=== PATIENT | female | born 1935 | race Caucasian/White ===

== ENCOUNTER 2019-06-12 11:22 | Inpatient (IN) | payer MEDICARE, MEDICAID ==
[~2019-06-12] VITALS: Ht 162.6 cm; Wt 73.5 kg
--- NOTE | 2019-06-12 11:24 | NUR ---
[id number] FOR NAUSEA AND VOMITING, R RIB AREA PAIN,NO BM X 2-3 WEEKS, TO ER BED 10, HOOKED TO MONITOR, CHANGED TO HOSPITAL GOWN, PROVIDED W WARM BLANKET, AWAITING MD POLO.
--- NOTE | 2019-06-12 11:49 | NUR ---
DR CHUNG AT BEDSIDE
[2019-06-12] MEDS ORDERED: IV NS 0.9% 500 ML BAG IV ONE (12:00)
[2019-06-12 12:21] LABS: BASOPHILS % (AUTO) 0.4 % (0.0-2.0); HEMATOCRIT 44 % (33-45); HEMOGLOBIN 14.4 g/dL (11.5-14.8); LYMPHOCYTES # (AUTO) 1.5 /CMM (0.8-4.8); LYMPHOCYTES % (AUTO) 13.3 % (20.0-44.0); MEAN CORPUSCULAR HGB CONC 33 g/dl (31.0-36.0); MEAN CORPUSCULAR VOLUME 93 fL (82-100); MONOCYTES # (AUTO) 0.4 /CMM (0.1-1.30); MONOCYTES % (AUTO) 4.1 % (2.0-12.0); NEUTROPHILS % (AUTO) 81.2 % (43.0-81.0); PLATELET COUNT (AUTO) 298 /CMM (150-450); RED BLOOD CELL COUNT(AUTO) 4.65 MIL/uL (4.0-5.2)
[2019-06-12 12:29] LABS: CALCIUM, SERUM 12.2 mg/dL (8.5-10.1); CARBON DIOXIDE 26 mmol/L (21-32); CHLORIDE 89 mmol/L (98-107); CREATININE 1.1 mg/dL (0.6-1.3); GLUCOSE 129 mg/dL (74-106); POTASSIUM 3.9 mmol/L (3.5-5.1); SODIUM SERUM 127 mmol/L (136-145); UREA NITROGEN, BLOOD 53 mg/dL (7-18)
[2019-06-12 12:44] LABS: ALANINE AMINOTRANSFERASE 18 U/L (12-78); ALBUMIN 2.9 g/dL (3.4-5.0); ALKALINE PHOSPHATASE 149 U/L (46-116); ASPARTATE AMINOTRANSFERASE 48 U/L (15-37); BILIRUBIN,DIRECT 2.2 mg/dL (0.0-0.2); LIPASE 471 U/L (73-393); TOTAL PROTEIN, SERUM 8.2 g/dL (6.4-8.2)
[2019-06-12] MEDS ORDERED: CT SWABBABLE VALVE TRANS SET 1 EA INFUS.SET MC ONE ×2 (12:50→16:02)
[2019-06-12] MEDS ORDERED: IOHEXOL-300 100 ML VIAL IV ONE ×2 (12:50→16:02)
[2019-06-12] MEDS ORDERED: IV NS 0.9% 250 ML IV ONE ×2 (12:50→16:02)
--- NOTE | 2019-06-12 12:50 | NUR ---
WHEELED OUT VIA [facility] FOR CT SCAN
--- NOTE | 2019-06-12 13:22 | NUR ---
US TECH AT BEDSIDE
--- NOTE | 2019-06-12 13:47 | NUR ---
PAGED [facility].
[2019-06-12] MEDS ORDERED: DILT-32 PO (13:50)
--- NOTE | 2019-06-12 14:58 | NUR ---
URINE SAMPLE COLLECTED VIA STRAIGHT CATH. SENT SAMPLE TO LAB
[2019-06-12] MEDS ORDERED: MAG HYDROX/AL HYDROX/SIMETH 30 ML UDC PO PRN (15:00)
[2019-06-12] MEDS ORDERED: ACETAMINOPHEN 325 MG TABLET PO PRN (15:00)
[2019-06-12] MEDS ORDERED: HYDROCODONE/APAP 5/325MG 1 EACH TABLET PO PRN (15:00)
[2019-06-12] MEDS ORDERED: MAGNESIUM HYDROXIDE 30 ML UDC PO PRN (15:00)
[2019-06-12] MEDS ORDERED: Z GUARD REMEDY 2 OZ OINT TP PRN (15:00)
[2019-06-12] MEDS ORDERED: ONDANSETRON HCL/PF 4 MG/2 ML VIAL IVP PRN (15:00)
[2019-06-12] MEDS ORDERED: ZOLPIDEM TARTRATE 5 MG TABLET PO PRN (15:00)
[2019-06-12] MEDS ORDERED: IV NS 0.9% 1,000 ML BAG IV ONE (15:30)
--- NOTE | 2019-06-12 15:42 | NUR ---
CALLED NURSING SUP.
[2019-06-12 15:44] LABS: APPEARANCE,URINE Cloudy (CLEAR); BILIRUBIN,URINE MODERATE (NEGATIVE); BLOOD, URINE Negative Ery/uL (NEGATIVE); KETONES,URINE Trace (NEGATIVE); LEUKOCYTE ESTERASE ,URINE Small (NEGATIVE); NITRITE, URINE Positive (NEGATIVE); PROTEIN,URINE Negative (NEGATIVE); UGLUCOSE Negative (NEGATIVE); UROBILINOGEN,URINE >=8.0 EU/dL (0.2)
[2019-06-12 15:46] LABS: COLOR,URINE DARK YELLOW (YELLOW)
--- NOTE | 2019-06-12 16:15 | NUR ---
WHEELED OUT VIA [facility] FOR CT CHEST WITH CONTRAST
--- NOTE | 2019-06-12 16:28 | NUR ---
PT GOING TO 307-2 MED SURG.
[2019-06-12 16:33] LABS: BACTERIA,URINE Many /HPF (None Seen); RBC,URINE 0-2 /HPF (0-2); SQUAMOUS EPITHELIAL CELL,UR Few /HPF (None Seen); URINE AMORPHOUS URATE Many /HPF (None Seen)
--- NOTE | 2019-06-12 16:33 | NUR ---
REPORT GIVEN TO ALICE OF MS UNIT
[2019-06-12 16:34] VITALS: BP 128/71
[2019-06-12] MEDS ORDERED: ENOXAPARIN SODIUM 60 MG/0.6 ML DISP.SYRIN SQ SCH (17:00)
--- NOTE | 2019-06-12 17:00 | NUR ---
RN MS NOTES RECEIVED PT FROM E.R. STAFF VIA TOYA, PT IS AWAKE, ALERT, [place] SPEAKING, ACCOMPANIED BY FAMILY, ASSISTED TO BED, MADE COMFORTABLE, CALL LIGHT PLACED WITHIN REACH, PT DENIES PAIN, NOT IN DISTRESS, NO NAUSEA OR VOMITING, KEPT WARM AND COMFORTABLE IN BED.
[2019-06-12] MEDS ORDERED: PAMIDRONATE 90 MG in IV NS 0.9% 500 ML IV ONE (17:30)
[2019-06-12] MEDS: ACETYLCYSTEINE 10% 3,000 MG/30 ML VIAL PO SCH (17:30)
[2019-06-12] MEDS ORDERED: HEPARIN INFUSION/D5W 500 ML IV ONE (17:30)
[2019-06-12] MEDS: IV D5/0.45 NACL 1,000 ML IV PRN (18:38)
--- NOTE | 2019-06-12 19:20 | NUR ---
RN MS NOTES PT IN BED, AWAKE, FAMILY AT BEDSIDE, DR. JUAN ORDERED TO START HEPARIN DRIP AND TO D/C LOVENOX, PTT ORDERED STAT, AWAITING RESULT, PT AND FAMILY INFORMED OF PLAN OF CARE, KEPT PT WARM AND COMFORTABLE, IV FLUIDS INFUSING WELL, CALL LIGHT WITHIN REACH.
--- NOTE | 2019-06-12 19:55 | NUR ---
RN OPENING NOTES RECEIVED REPORT FROM ALICE TAVERAS RN. FOUND Pt RESTING IN BED. NO S/S OF ACUTE DISTRESS OR SOB NOTED. Pt IS A/OX2, LITHUANIAN SPEAKING. IV ACCESS ON RAC #20G. IVF D51/2NS @75ML/HR, INFUSING WELL. PER REPORT Pt WILL START ON HEPARIN DRIP NOW. SAFETY MEASURES IN PLACE. BED LOW, LOCKED, HOB ELEVATED, SIDE RAILS UP, CALL LIGHT AND BEDSIDE TABLE WITHIN REACH. BED ALARM ON. WILL CONTINUE TO MONITOR Pt's CONDITION AND SAFETY THROUGHOUT THE NIGHT.
[2019-06-12 20:00] VITALS: BP 124/57
[2019-06-12] MEDS ORDERED: HEPARIN SODIUM, PORCINE 5000 UNITS/1 ML VIAL IV ONE (20:00)
--- NOTE | 2019-06-12 20:30 | NUR ---
RN NOTES PER CXR IMAGING NOTES THAT RESULTED, Pt IS ALSO POSITIVE FOR PE. INFORMED [employer] CONSULTANT CHIEF MECHANICAL OFFICER BERTHA MUÑOZ. PER VERBAL ORDER, SAID TO UPGRADE Pt TO TELE FROM MS. WILL CARRY OUT ORDER.
--- NOTE | 2019-06-12 20:46 | NUR ---
RN NOTES STARTED Pt ON HEPARIN DRIP. GAVE INITIAL BOLUS OF 6000UN SQ ON RLQ. INITIATED HEPARIN DRIP @1350UN/HR, INFUSING @ 27ML/HR. Pt IS RESTING COMFORTABLY IN BED. RESPONSIVE. NO S/S OF ACUTE DISTRESS OR SOB NOTED. WILL CONTINUE TO MONITOR Pt's CONDITION.
--- NOTE | 2019-06-12 20:47 | NUR ---
RN NOTES ORDERED PTT & PT W/INR LABS TO BE DRAWN @ 0245 ON 06/13/19
--- NOTE | 2019-06-12 20:57 | NUR ---
RN NOTES SPOKE WITH PHARMACY TO CONFIRM IF AREDIA IS COMPATIBLE TO BE INFUSED WITH HEPARIN DRIP AT THE SAME TIME. PHARMACY CONFIRMED THAT AREDIA IS COMPATIBLE TO BE INFUSED IN THE SAME PORT WITH HEPARIN DRIP. WILL START AREDIA KE.
--- NOTE | 2019-06-12 21:35 | NUR ---
RN NOTES Pt PLACED ON TELE MONITOR WITH TELE READING SR 85. NO S/S OF ACUTE DISTRESS OR SOB NOTED. WILL CONTINUE TO MONITOR Pt's CONDITION AND SAFETY.
[2019-06-13] VITALS: BP 116/63
[2019-06-13 04:00] VITALS: BP 124/57
[2019-06-13] MEDS: ACETYLCYSTEINE 10% 3,000 MG/30 ML VIAL PO SCH (05:30)
--- NOTE | 2019-06-13 05:30 | NUR ---
RN NOTES SPOKE WITH LAB ON THE PHONE, GAVE LAB RESULTS LATE DUE TO PROBLEM WITH THE MACHINE. CRITICAL HIGH OF PTT 152.2 SPOKE WITH ONCALL HOSPITALIST VACUUM WORKER BERTHA MUÑOZ. INFORMED HIM OF Pt's HIGH PTT OF 152.2 SAID TO HOLD HEPARIN FOR 1HR AND FOLLOW THE REST OF THE HEPARIN DRIP PROTOCOL. PER PROTOCOL: HOLD HEPARIN FOR 1HR, THEN DECREASE DRIP BY 3UN/KG/HR = 250UN/HR. NEW HEPARIN DRIP RATE WILL START IN 1HR @1100UN/HR. ORDERED NEW PTT LABS TO BE DRAWN @1230PM. WILL CARRY OUT ORDERS.
[2019-06-13 06:30] LABS: BASOPHILS % (AUTO) 0.3 % (0.0-2.0); EOSINOPHILS % (AUTO) 0.8 % (0.0-6.0); HEMATOCRIT 36 % (33-45); HEMOGLOBIN 12.1 g/dL (11.5-14.8); LYMPHOCYTES # (AUTO) 1.1 /CMM (0.8-4.8); LYMPHOCYTES % (AUTO) 11.5 % (20.0-44.0); MEAN CORPUSCULAR HGB CONC 33 g/dl (31.0-36.0); MEAN CORPUSCULAR VOLUME 93 fL (82-100); MONOCYTES # (AUTO) 0.5 /CMM (0.1-1.30); MONOCYTES % (AUTO) 5.4 % (2.0-12.0); NEUTROPHILS # (AUTO) 8.1 /CMM (1.8-8.9); PLATELET COUNT (AUTO) 236 /CMM (150-450); RED BLOOD CELL COUNT(AUTO) 3.91 MIL/uL (4.0-5.2); WHITE BLOOD COUNT (AUTO) 9.9 K/uL (4.3-11.0)
--- NOTE | 2019-06-13 06:35 | NUR ---
RN NOTES STARTED Pt ON NEW HEPARIN DRIP RATE @1100UN/HR. ORDERED PTT LAB DRAW @ 1230PM
[2019-06-13 06:44] LABS: CALCIUM, SERUM 10.1 mg/dL (8.5-10.1); CREATININE 0.8 mg/dL (0.6-1.3); MAGNESIUM 1.6 mg/dL (1.8-2.4); PHOSPHORUS 2.4 mg/dL (2.5-4.9)
--- NOTE | 2019-06-13 06:48 | NUR ---
RN CLOSING NOTES NO SIGNIFICANT CHANGES IN Pt's CONDITION. ALL NEEDS MET AND ATTENDED TO. Pt IS CURRENTLY RESTING IN BED, WITH EVEN AND UNLABORED RESPIRATIONS. NO S/S OF ACUTE DISTRESS OR SOB NOTED DURING THE NIGHT. Pt REMAINS IN STABLE CONDITION. SAFETY MEASURES IN PLACE. BED LOW, LOCKED, HOB ELEVATED, SIDE RAILS UP, CALL LIGHT AND BEDSIDE TABLE WITHIN REACH. BED ALARM ON. TELE READING SR 78. WILL ENDORSE TO DAYSHIFT RN FOR Pt's MAYTE.
[2019-06-13 06:51] LABS: THYROID STIMULATING HORMONE 4.136 uIU/mL (0.358-3.74)
--- NOTE | 2019-06-13 06:55 | NUR ---
RN NOTES RECEIVED CALL FROM LAB KAVITA OLSON STATING THAT THE PREVIOUS RESULT OF THE PTT 152.2 WAS INCORRECT, AND WAS ACTUALLY FOR A DIFFERENT PATIENT. THE CORRECT PTT RESULT FOR THE Pt IN 307-2 WAS 300. WILL PAGE TILE INSPECTOR HOSPITALIST TO INFORM THEM OF THE CORRECT RESULT. HELD HEPARIN DRIP FOR NOW UNTIL FURTHER ORDERS.
[2019-06-13 07:06] LABS: IMMUNOGLOBULIN A, SERUM 277 mg/dL (64-422); IMMUNOGLOBULIN G, SERUM 1041 mg/dL (700-1600); IMMUNOGLOBULIN M, SERUM 167 mg/dL (26-217)
[2019-06-13 07:09] LABS: POTASSIUM 2.6 mmol/L (3.5-5.1)
--- NOTE | 2019-06-13 07:10 | NUR ---
RN NOTES SPOKE WITH KHADAR MUÑOZ INFORMED HIM OF Pt's ACTUAL PTT RESULT OF 300. PER ORDER: TO HOLD HEPARIN UNTIL 0830. GET A REPEAT PTT & PT W/INR LABS TIMED FOR 0830. HOLD HEPARIN DRIP UNTIL NEW RESULTS AND ADJUST NEW RATE ACCORDINGLY. IF STILL GREATER >130, THEN FOLLOW PROTOCOL. SALES CORRESPONDENT MADE AWARE THAT Pt HAS HX OF LEFT BREAST MASTECTOMY, WHICH IS WHY LABS HAVE TO BE DRAWN ON THE RIGHT ARM. LABS FOR PTT WAS DRAWN BELOW THE IV SITE ON THE RAC: LABS WAS DRAWN FROM RT HAND.
--- NOTE | 2019-06-13 07:32 | NUR ---
CHILDREN'S AUTHOR NOTES PATIENT AWAKE RESTING IN BED, ALERT AND ORIENTED X 2, ROMANIAN SPEAKING . NO S/S OF ACUTE DISTRESS OR SOB. IV ACCESS ON RAC #20G INFUSING D51/2NS AT 75ML/HR. IV SHOWS NO REDNESS, NO INFILTRATION, PATENT AND INTACT. PER REPORT WILL START HEPARIN DRIP. SAFETY MEASURES IN PLACE. BED LOW AND LOCKED, CALL LIGHT KEPT WITHIN REACH. BED ALARM ON. WILL CONTINUE TO MONITOR PATIENT.
[2019-06-13 08:00] VITALS: BP 124/65
[2019-06-13 08:07] LABS: CANCER AG, 125 160.4 U/mL (0.0-38.1); CANCER AG, 15-3 168.2 U/mL (0.0-25.0)
[2019-06-13] MEDS: PANTOPRAZOLE 40 MG VIAL IV SCH (08:58)
[2019-06-13] MEDS: DILTIAZEM HCL CD 120 MG PO SCH ×2 (09:00→10:13)
--- NOTE | 2019-06-13 09:10 | NUR ---
ENGINEERING AND DEVELOPMENT DIRECTOR NOTES RESULTS OBTAINED FROM LAB PTT:110.5, PATIENT ON HEPARIN DRIP WHICH IS HELD. RESULTS REPEATED FROM AM TO VERIFY RESULTS. PER PROTOCOL HOLD HEPARIN 1 HOURS AND DECREASE RATE BY 250 UNITS/HR. ORDERS NOTED AND CARRIED OUT. PTT ORDERED IN 6 HOURS
[2019-06-13] MEDS ORDERED: POTASSIUM CHLORIDE 20 MEQ TAB.PRT.SR PO ONE (10:00)
[2019-06-13] MEDS ORDERED: Sodium Phosphate 7.5 MMOL in IV D5W 100 ML IV ONE (10:00)
[2019-06-13 10:07] LABS: BAND % (MANUAL) 4 % (0.0-5.0); EOSINOPHILS % (MANUAL) 2 % (0-4); LYMPHOCYTES % (MANUAL) 8 % (16-48); MONOCYTES % (MANUAL) 8 % (0-11.0); NEUTROPHILS % (MANUAL) 78 (42-76)
--- NOTE | 2019-06-13 10:10 | NUR ---
DICTATING MACHINE TYPIST NOTES AT 1010 STARTED HEPARIN DRIP, UNABLE TO START 2ND IV LINE. ORDER OBTAINED FOR MIDLINE, WAITING FOR MIDLINE LINE TO ADMINISTER MG AND PHOSPHATE.
[2019-06-13] MEDS ORDERED: MORPHINE SULFATE INJ 2 MG/ML DISP.SYRIN IV PRN (11:30)
[2019-06-13] MEDS: HEPARIN INFUSION/D5W 500 ML IV PRN ×2 (11:41→17:52)
[2019-06-13 13:06] LABS: *SPE A/G RATIO 0.7 (0.7-1.7); *SPE ALBUMIN 2.3 g/dL (2.9-4.4); *SPE ALPHA-1-GLOBULIN 0.3 g/dL (0.0-0.4); *SPE ALPHA-2-GLOBULIN 1.1 g/dL (0.4-1.0); *SPE BETA GLOBULIN 0.8 g/dL (0.7-1.3); *SPE GLOBULIN, TOTAL 3.2 g/dL (2.2-3.9); *SPE M-SPIKE Not Observed g/dL (Not Observed)
[2019-06-13] MEDS: CEFTRIAXONE 1 G in IV D5W 50 ML IV SCH (13:36)
[2019-06-13] MEDS: Magnesium 1GM/D5W 100ML PREMIX 100 ML IV SCH ×2 (14:38→16:19)
[2019-06-13 16:00] VITALS: BP 130/57
--- NOTE | 2019-06-13 16:10 | NUR ---
PAIN MEDICINE PHYSICIAN NOTES CALL RECEIVED FROM LAB REPORTING PTT OF 112.0, PER PROTOCOL HELD HEPARIN FOR ONE HOUR, DECREASE RATE BY 250 UNITS/HR REPEAT PTT AT 2200. WILL CONTINUE TO MONITOR.
--- NOTE | 2019-06-13 19:02 | NUR ---
GLUER AND SLICER HAND NOTES PATIENT IN BED RESTING WITH DAUGHTERS AT BEDSIDE. NO SOB OR ACUTE DISTRESS NOTED. ALL DUE MEDICATIONS ADMINISTERED. ALL NEEDS MET. PATIENT ON HEPARIN DRIP RUNNING AT 850 UNITS/HR. NO SIGNS OR SYMPTOMS OF BLEEDING NOTED. ALL DUE MEDICATIONS ADMINISTERED. ALL NEEDS MET. ENDORSED CARE TO PM SHIFT.
--- NOTE | 2019-06-13 19:40 | NUR ---
RN OPENING NOTES RECEIVED REPORT FROM JEANNE TAVERAS RN. FOUND Pt RESTING IN BED. NO S/S OF ACUTE DISTRESS OR SOB NOTED. Pt IS A/OX2, [place] SPEAKING. IV ACCESS ON RAC #20G & TUCKER MIDLINE. IVF D51/2NS @75ML/HR, INFUSING WELL. HEPARIN DRIP RATE @ 850UN/HR. 2200 PTT DRAW SCHEDULED. SAFETY MEASURES IN PLACE. BED LOW, LOCKED, HOB ELEVATED, SIDE RAILS UP, CALL LIGHT AND BEDSIDE TABLE WITHIN REACH. BED ALARM ON. WILL CONTINUE TO MONITOR Pt's CONDITION AND SAFETY THROUGHOUT THE NIGHT.
[2019-06-13 20:00] VITALS: BP 128/56
--- NOTE | 2019-06-13 22:19 | NUR ---
RN NOTES PTT LAB DRAWN. INFORMED FLAT KNITTER HELPER THAT BLOOD DRAW IS OK ON LHAND ONLY OR FOOT PER MD ORDER. PTT LAB WAS DRAWN ON LEFT HAND.
--- NOTE | 2019-06-13 22:59 | NUR ---
RN NOTES PTT LEVEL 89.5 PER PROTOCOL TO DECREASE BY 2UN/KG/HR, WHICH IS 150UN. CURRENT DRIP RATE IS 850UN/HR - 150UN/HR = 700UN/HR NEW HEPARIN RATE @ 700UN/HR. NEXT PTT LAB DRAW SCHEDULED AT 0500.
[2019-06-14] VITALS: BP 124/58
[2019-06-14] MEDS: IV D5/0.45 NACL 1,000 ML IV PRN ×3 (00:38→18:59)
[2019-06-14] MEDS: HEPARIN INFUSION/D5W 500 ML IV PRN (01:56)
[2019-06-14 04:00] VITALS: BP 121/58
[2019-06-14] MEDS: ACETYLCYSTEINE 10% 3,000 MG/30 ML VIAL PO SCH (05:42)
--- NOTE | 2019-06-14 06:13 | NUR ---
RN NOTES PTT LABS STILL PENDING. WAITING FOR RESULT.
[2019-06-14 06:23] LABS: BASOPHILS % (AUTO) 0.3 % (0.0-2.0); EOSINOPHILS % (AUTO) 1.8 % (0.0-6.0); HEMATOCRIT 35 % (33-45); HEMOGLOBIN 11.6 g/dL (11.5-14.8); LYMPHOCYTES % (AUTO) 13.3 % (20.0-44.0); MEAN CORPUSCULAR HGB CONC 34 g/dl (31.0-36.0); MEAN CORPUSCULAR VOLUME 92 fL (82-100); MONOCYTES # (AUTO) 0.3 /CMM (0.1-1.30); MONOCYTES % (AUTO) 3.9 % (2.0-12.0); NEUTROPHILS # (AUTO) 6.3 /CMM (1.8-8.9); NEUTROPHILS % (AUTO) 80.7 % (43.0-81.0); PLATELET COUNT (AUTO) 238 /CMM (150-450); RED BLOOD CELL COUNT(AUTO) 3.74 MIL/uL (4.0-5.2); WHITE BLOOD COUNT (AUTO) 7.8 K/uL (4.3-11.0)
[2019-06-14 06:53] LABS: CALCIUM, SERUM 9.5 mg/dL (8.5-10.1); CREATININE 0.8 mg/dL (0.6-1.3); PHOSPHORUS 2.4 mg/dL (2.5-4.9); POTASSIUM 2.9 mmol/L (3.5-5.1)
--- NOTE | 2019-06-14 07:00 | NUR ---
RN CLOSING NOTES PTT LAB STILL PENDING. HEPARIN DRIP RATE CURRENTLY SET AT 700UN/HR. NO SIGNIFICANT CHANGES IN Pt's CONDITION. ALL NEEDS MET AND ATTENDED TO. Pt IS RESTING COMFORTABLY IN BED. NO S/S OF ACUTE DISTRESS OR SOB NOTED DURING THE NIGHT. SAFETY MEASURES IN PLACE. BED LOW, LOCKED, HOB ELEVATED, SIDE RAILS UP, CALL LIGHT AND BEDSIDE TABLE WITHIN REACH. BED ALARM ON. WILL ENDORSE TO DAYSHIFT RN FOR Pt's MAYTE. TELE READING SR 76.
--- NOTE | 2019-06-14 07:08 | NUR ---
RN NOTES PTT RESULTED 62.7 PER PROTOCOL NO CHANGE. KEPT AT CURRENT RATE OF 700UN/HR.
--- NOTE | 2019-06-14 07:35 | NUR ---
TOLL PATROLMAN OPENING NOTES: RECEIVED PATIENT SLEEPING IN BED COMFORTABLY. PATIENT STABLE. NO SIGNS OF DISTRESS OR SOB. PT IS A/OX2, CENTRAL AFRICAN SPEAKING. IV ACCESS ON RAC #20G & TUCKER MIDLINE INTACT AND PATENT. IVF D51/2NS @75ML/HR, INFUSING WELL. HEPARIN DRIP RATE @ 700UN/HR. SAFETY MEASURES INITIATED IN PLACE. BED IS IN LOW, LOCKED POSITION. HOB ELEVATED, SIDE RAILS UP, BED ALARM ON. CALL LIGHT AND BEDSIDE TABLE WITHIN REACH. WILL CONTINUE TO MONITOR ACCORDINGLY.
[2019-06-14 08:00] VITALS: BP 129/59
[2019-06-14] MEDS: DILTIAZEM HCL CD 120 MG PO SCH (09:00)
[2019-06-14] MEDS: PANTOPRAZOLE 40 MG VIAL IV SCH (09:04)
[2019-06-14 09:59] LABS: EOSINOPHILS % (MANUAL) 3 % (0-4); LYMPHOCYTES % (MANUAL) 9 % (16-48); MONOCYTES % (MANUAL) 7 % (0-11.0); NEUTROPHILS % (MANUAL) 81 (42-76)
[2019-06-14] MEDS ORDERED: SENNOSIDES/DOCUSATE SODIUM 1 TAB TABLET PO PRN (11:00)
--- NOTE | 2019-06-14 11:06 | NUR ---
MANAGER TAX NOTES TRIED COMPLETING MRI CHECKLIST FOR MRI OF THE PELVIS DAUGHTER STATES PATIENT HAS AN IMPLANT IN THE BREAST PROVIDED CARD WHICH SPECIFICALLY STATES NOT COMPATIBLE WITH MRI. MRI CANCELLED WILL NOTIFY DR. WHELAN.
--- NOTE | 2019-06-14 11:55 | NUR ---
WOUND CARE CONSULT: PT PRESENTS WITH DEEP TISSUE INJURY IN EVOLUTION TO SACRUM WHICH EXTENDS TO BILATERAL BUTTOCKS, PRESENT ON ADMISSION. PT ALSO NOTED TO HAVE EDEMA TO LEFT LEG AND SMALL AMOUNT OF BLOOD IN FRONT AREA OF DIAPER. RECOMMENDATIONS MADE FOR SKIN PROTECTION AND WOUND CARE. DISCUSSED WITH NURSING STAFF. FANNY ISOFLEX LOW AIRLOSS BED TO BE PLACED WHEN AVAILABLE. WILL SEE PRN. CURRENT KRISTEL SCORE IS 15. Addendum: 06/14/19 at 1158 by EVELYNE CALZADA WNDNU Amended: Links added.
[2019-06-14] MEDS: POTASSIUM CHLORIDE 20 MEQ POWDER PACKET PO SCH ×3 (12:09→13:33)
[2019-06-14] MEDS: CEFTRIAXONE 1 G in IV D5W 50 ML IV SCH (12:11)
[2019-06-14 12:53] LABS: BILIRUBIN,DIRECT 0.9 mg/dL (0.0-0.2); BILIRUBIN,TOTAL 1.4 mg/dL (0.2-1.0); TOTAL PROTEIN, SERUM 6.1 g/dL (6.4-8.2)
[2019-06-14] MEDS ORDERED: NEUTRA PHOS 1 POWD.PACKET PO ONE (13:00)
[2019-06-14 16:00] VITALS: BP 129/60
--- NOTE | 2019-06-14 19:25 | NUR ---
RN OPEN NOTES RECEIVED PATIENT AWAKE IN BED WITH FAMILY AT BEDSIDE. A/O X2. NO SIGNS OF DISTRESS OR DISCOMFORT. BREATHING EVEN AND UNLABORED. ON TELE MONITORING WITH SR 76 NOTED. IV ACCESS IN RAC WITH D5/12 NS INFUSING AND TUCKER MIDLINE WITH HEPARIN INFUSING AT 700U/HR, BOTH PATENT AND INTACT, NO SIGNS OF REDNESS OR INFILTRATION. BED IN LOW LOCKED POSITION WITH SIDE RAILS X2. CALL LIGHT WITHIN REACH. BED ALARM ON. WILL CONTINUE TO MONITOR.
--- NOTE | 2019-06-14 19:44 | NUR ---
CARPET JOURNEYMAN CLOSING NOTES: PT IN BED RESTING, A/OX2. FAMILY AT BEDSIDE. VERBALLY RESPONSIVE. ABLE TO MAKE NEEDS KNOWN. NO S/S OF DISTRESS OR SOB. ON ROOM AIR SATURATING AT 96%. ALL DUE MEDS GIVEN ORDERED, TOLERATED WELL. THERE ARE NO CHANGES TO PT'S CONDITION. ALL NURSING NEEDS MET AND PROVIDED. SAFETY MEASURES KEPT IN PLACE. BED IN LOW LOCKED POSITION. SIDE RAILS UP X2. HOB ELEVATED. ANASTROZOLE 1 MG DUE AT 1830, CALLED PHARMACY TO REQUEST MED TO BE DELIVERED, UNABLE TO ADMINISTER SINCE MEDICATION IS NOT AVAILABLE ON THE FLOOR. ENDORSED TO ADMINISTRATION ASSISTANT NURSE, ONCE MEDICATION IS AVAILABLE TO ADMINISTER. CARE ENDORSED TO ADMINISTRATION ASSISTANT.
[2019-06-14 20:00] VITALS: BP 109/67
[2019-06-14] MEDS: ANASTROZOLE 1 MG TABLET PO SCH (20:08)
[2019-06-15 00:06] VITALS: BP 120/58
[2019-06-15] MEDS: HEPARIN INFUSION/D5W 500 ML IV PRN (02:06)
[2019-06-15 04:00] VITALS: BP 116/63
[2019-06-15 04:28] VITALS: BP 116/63
--- NOTE | 2019-06-15 06:31 | NUR ---
RN CLOSING NOTES PATIENT RESTING IN BED, EASILY AROUSABLE. A/O X2. NO SIGNS OF DISTRESS OR DISCOMFORT. BREATHING EVEN AND UNLABORED. ON TELE MONITORING WITH SR 67 NOTED. IV ACCESS IN RAC WITH D5/12 NS INFUSING AND TUCKER MIDLINE WITH HEPARIN INFUSING AT 700U/HR, BOTH PATENT AND INTACT, NO SIGNS OF REDNESS OR INFILTRATION. CURRENT PTT RESULT PENDING. ALL NEEDS MET. NO SIGNIFICANT CHANGES THROUGH THE NIGHT. PATIENT REPOSITIONED Q2H AND PRN. KEPT CLEAN DRY AND COMFORTABLE. BED IN LOW LOCKED POSITION WITH SIDE RAILS X2. CALL LIGHT WITHIN REACH. BED ALARM ON. WILL ENDORSE TO AM SHIFT FOR MAYTE.
[2019-06-15 06:49] LABS: CALCIUM, SERUM 8.9 mg/dL (8.5-10.1); CREATININE 0.7 mg/dL (0.6-1.3); PHOSPHORUS 2.7 mg/dL (2.5-4.9); POTASSIUM 3.6 mmol/L (3.5-5.1)
--- NOTE | 2019-06-15 07:15 | NUR ---
RN NOTES PTT 63.5, PER PROTOCOL NO CHANGES NEEDED AT THIS TIME. WILL KEEP HEPARIN AT CURRENT RATE OF 700U/HR. WILL ENDORSE TO AM SHIFT FOR MAYTE.
--- NOTE | 2019-06-15 07:43 | NUR ---
TOOL TENDER OPENING NOTES Patient received on room air, no sob noted, a/o x2 at this time. No s/s of pain noted. Patient is currently on Heparin drip @ 700 unit per hour, heparin bag to be changed at 0200 per report. PTT order for tomorrow placed by NOC shift. TUCKER mid line present, RAC #20 with d5 1/2 NS @ 75 ml per hour present. Bed at the lowest setting, call light within reach, side rails up x2.
[2019-06-15 08:00] VITALS: BP 123/60
[2019-06-15] MEDS ORDERED: EDOX60TA PO (09:10)
[2019-06-15] MEDS ORDERED: LEVO500T75 PO (09:10)
[2019-06-15] MEDS ORDERED: ANAS1TAB8 PO (09:10)
[2019-06-15] MEDS: PANTOPRAZOLE 40 MG VIAL IV SCH (09:11)
[2019-06-15] MEDS: ANASTROZOLE 1 MG TABLET PO SCH (09:12)
[2019-06-15] MEDS: DILTIAZEM HCL CD 120 MG PO SCH (09:12)
[2019-06-15] MEDS: CEFTRIAXONE 1 G in IV D5W 50 ML IV SCH (11:49)
[2019-06-15 12:00] VITALS: BP 124/50
[2019-06-15 16:00] VITALS: BP 126/50
--- NOTE | 2019-06-15 18:37 | NUR ---
RN CLOSING NOTES- Patient remains on room air, no sob noted, a/o x2 maori speaking mainly. Patient to be discharged and is awaiting ambulance for transfer. IV lines to be removed once they arrived.
--- NOTE | 2019-06-15 19:18 | NUR ---
MORTGAGE BRANCH MANAGER notes Patient discharged at this time. No sob noted, vital signs stable. IV lines removed with minimal bleeding noted. Paperwork given to EMT's to be given to patients family member. Heparin stopped at this time. Patient to be transported back home with ambulance.
== END 2019-06-15 19:30 | disposition home health service (06) | DRG 438 ==
LOC: ER 11:23 → MED 16:31 → TELE 06-13 01:30
PROVIDERS: ATTEND Nurse Practitioner Acute Care
PROC: 05H533Z Insertion of Infusion Device into Right Subclavian Vein, Percutaneous Approach (ICD-10-PCS; principal; 2019-06-13)
DX: K85.90 Acute pancreatitis without necrosis or infection, unspecified (principal); I26.99 Other pulmonary embolism without acute cor pulmonale; I82.412 Acute embolism and thrombosis of left femoral vein; C79.51 Secondary malignant neoplasm of bone; E87.1 Hypo-osmolality and hyponatremia; E87.2 Acidosis; N39.0 Urinary tract infection, site not specified; E46 Unspecified protein-calorie malnutrition; D68.59 Other primary thrombophilia; I82.432 Acute embolism and thrombosis of left popliteal vein; I10 Essential (primary) hypertension; C50.919 Malignant neoplasm of unspecified site of unspecified female breast; E86.0 Dehydration; Z90.12 Acquired absence of left breast and nipple; Z85.3 Personal history of malignant neoplasm of breast; E83.52 Hypercalcemia; K80.70 Calculus of gallbladder and bile duct without cholecystitis without obstruction; Z87.81 Personal history of (healed) traumatic fracture; E83.39 Other disorders of phosphorus metabolism; E83.42 Hypomagnesemia; E87.6 Hypokalemia; Z68.27 Body mass index [BMI] 27.0-27.9, adult; B96.20 Unspecified Escherichia coli [E. coli] as the cause of diseases classified elsewhere; E80.6 Other disorders of bilirubin metabolism; R74.0 Nonspecific elevation of levels of transaminase and lactic acid dehydrogenase [LDH]; E88.09 Other disorders of plasma-protein metabolism, not elsewhere classified; N28.1 Cyst of kidney, acquired; R93.5 Abnormal findings on diagnostic imaging of other abdominal regions, including retroperitoneum
CPT/HCPCS: 36415; 70450-TC; 71260-TC; 76705-TC; 76856-TC; 80048-TC; 80061-TC; 80076-TC; 81000-TC; 82378; 82784; 83605-TC; 83690-TC; 83735-TC; 84100-TC; 84155; 84165; 84443-TC; 84484-TC; 85025-TC; 85610-TC; 85730-TC; 86300; 86304; 86334; 87081-TC; 87086-TC; 87186-TC; 93971-TC; 97112-TC; 97530-TC; A4216; A9563; C9113; G0378; J0696; J1644; J2430; J3475; J3490; J7030; J7040; J7050; J7060; Q9967